=== PATIENT | male | born 1960 | race Caucasian/White ===

== ENCOUNTER 2024-12-08 08:26 | Emergency (ER) | payer BC ==
[~2024-12-08] VITALS: Ht 170.2 cm; Wt 68.2 kg
[2024-12-08 09:08] LABS: BASOPHILS % (AUTO) 0.3 % (0-1); EOSINOPHILS % (AUTO) 0.1 % (0-6); HEMATOCRIT 51.2 % (42.0-52.0); HEMOGLOBIN 17.2 g/dl (14.0-17.9); MEAN CORPUSCULAR HEMOGLOBIN 30.3 PG (27.0-31.0); MEAN CORPUSCULAR HGB CONC 33.6 g/dL (33.0-36.5); MEAN CORPUSCULAR VOLUME 90.1 FL (78-98); MEAN PLATELET VOLUME 8.1 FL (7.4-10.4); MONOCYTES # (AUTO) 0.9 X10'3 (0-0.9); MONOCYTES % (AUTO) 8.6 % (2-12); NEUTROPHILS # (AUTO) 8.4 X10'3 (1.8-7.7); PLATELET COUNT 310 X10'3 (140-440); RED BLOOD COUNT 5.69 X10'6 (4.70-6.10); RED CELL DISTRIBUTION WIDTH 13.5 % (11.5-14.5); WHITE BLOOD COUNT 10.4 X10'3 (4.5-11.0)
[2024-12-08 09:23] LABS: ALANINE AMINOTRANSFERASE 19 U/L (12-78); ALBUMIN/GLOBULIN RATIO 0.8 (1.1-1.5); ALKALINE PHOSPHATASE 57 IU/L (46-116); ANION GAP 10 (8-16); ASPARTATE AMINO TRANSFERASE 18 U/L (10-37); BILIRUBIN,TOTAL 0.7 MG/DL (0.1-1.0); BLOOD UREA NITROGEN 21 MG/DL (7-18); BUN/CREATININE RATIO 17.9 (10.0-20.0); CHLORIDE 101 MMOL/L (99-107); CREATININE 1.17 MG/DL (0.60-1.10); GLUCOSE 163 MG/DL (70-104); POTASSIUM 3.6 MMOL/L (3.5-5.1); SODIUM 138 MMOL/L (135-145); TOTAL CARBON DIOXIDE 27.4 MMOL/L (24-32); TOTAL PROTEIN 8.8 G/DL (6.4-8.2); eCRCL 60 ML/MIN; eGFR 63 ML/MIN
[2024-12-08 09:30] LABS: PRO BRAIN NATRIURETIC PEPTIDE 83 PG/ML (0-125)
[2024-12-08] MEDS: ondansetron/PF 4mg/2ml inj IV ONE (09:37)
[2024-12-08] MEDS: normal saline 1000ml 1,000 ML IV ONE (09:37)
[2024-12-08] MEDS ORDERED: iohexol 300mg/ml 100ml inj. ONE (09:37)
[2024-12-08] MEDS ORDERED: AZIT250T83 PO (11:23)
[2024-12-08] MEDS: CefTRIAXone 2gm/D5W 50ml BAG 50 ML IV ONE (11:45)
[2024-12-08 12:51] VITALS: BP 123/77; PULSE 82; RESP 16; TEMP 98; O2SAT 94
[2024-12-10 08:36] LABS: % FREE PSA 13.6 % (.); PROSTATE SPECIFIC AG, SERUM 1.1 ng/mL (0.0-4.0); PSA, FREE 0.15 ng/mL
== END 2024-12-08 12:50 | disposition home or self-care (01) ==
LOC: ER 08:27
DX: J18.9 Pneumonia, unspecified organism (principal); E86.0 Dehydration; Z20.822 Contact with and (suspected) exposure to COVID-19
CPT/HCPCS: 36415; 71045; 74177; 80053; 83880; 84153; 84154; 84484; 85025; 87502; 87503; 87811; 93005; 96361; 96365; 96375; 99285; J0696; J2405; J7030; Q9967